=== PATIENT | male | born 1985 | race Caucasian/White ===

== ENCOUNTER 2025-01-18 14:41 | Outpatient (CLI) | payer BC, SELFPAY ==
--- NOTE | 2025-01-18 16:02 | P.STN_ITS ---
Stress Test Note Date Date Seen: 01/18/25 Date of test: 01/18/25 Providers Primary care provider: Alfredo Peters Stress test physician: Wendy Knight Stress Test Note Stress test ordered: Stress Echo Indication for test: Chest pain with running, abnormal calcium score Stress test medicine: None Results discussion: Resting EKG: Sinus rhythm, 67 beats per minute. Resting blood pressure: 118/70 Stress test: Patient is consented on stress test ordered which is a treadmill exercise stress echo. Standard Yasir protocol was followed. Patient exercised to 10 minutes 48 seconds, equivalent to 12.1 Mets. He stopped due to reaching exercise capacity. He had a maximum heart rate of 166 beats per minute which was 107% of a calculated target heart rate of 155. He had a rate pressure product of 25,896. He had no chest pain, there was no arrhythmia, no diagnostic EKG changes indicative of ischemia. One PVC was seen in recovery which was captured on the tracing. Echo images are pending for a full formal diagnostic test. Impression: Subjectively negative, objectively negative EKG portion of this stress test. Follow up suggested: Patient was discharged in stable condition, he will await follow-up call with results once the echo images are back for full formal report. His calcium score from [facility] was reviewed, he had a calcium score of 1 in the left anterior descending artery, 0 elsewhere. This did place him in the 78th percentile for age. He thought he had a 70% chance of dying, reviewed with him that this just means he has calcium buildup but there is still a low burden of calcium albeit he is developing calcium at a young age. Thus, the 78% as compared to other people in his age cohort whom do not have any calcium buildup. He states he had lipids drawn before, believes his total cholesterol may have been in the 300 range. We discussed strategies such as statins for lowering cholesterol, he can discuss this further with his primary provider. If he indeed has the cholesterol level that he reported with his current exercise capacity and low body weight, would believe that this is likely familial hyperlipidemia. Did review with him lie per protein a, there is no treatment for this at this time but it is another potential risk factor and if his lipoprotein a is elevated with elevated cholesterol, would strongly suggest he consider statin. He can always have referral for discussion with a preventative head pastry chef or a lipid specialist if he needs this in his decision making. He had many questions and was interested in what he can potentially do. We did spend some time reviewing lifestyle modification. However, stressed with him if he has a high cholesterol to level he is telling me, he may very well need medication management. I ultimately defer to his primary, have not seen any other laboratory values.
[2025-01-18 16:03] VITALS: BP 144/78; PULSE 90; RESP 18
== END 2025-01-18 14:42 | disposition home or self-care (01) ==
LOC: STRESS 14:41
PROVIDERS: PCP Family Medicine; Visit Provider Family Medicine
DX: R07.9 Chest pain, unspecified (principal); E78.00 Pure hypercholesterolemia, unspecified; I10 Essential (primary) hypertension
CPT/HCPCS: 93016; 93325; 93351

== ENCOUNTER 2025-05-10 12:22 | Outpatient (CLI) | payer BC, SELFPAY | END 2025-05-10 12:23 | disposition home or self-care (01) | PROVIDERS: PCP Family Medicine; Visit Provider Family Medicine | DX: I10 Essential (primary) hypertension (principal); E78.00 Pure hypercholesterolemia, unspecified; R00.0 Tachycardia, unspecified; R53.83 Other fatigue; R07.9 Chest pain, unspecified | CPT/HCPCS: 80053; 80061; 80306; 83695; 84443 ==